=== PATIENT | male | born 1965 | race Caucasian/White ===

== ENCOUNTER 2024-07-16 23:11 | Emergency (ER) | payer BC, SELFPAY ==
--- NOTE | ~2024-07-16 | CT_ITS ---
Noncontrast CT scan of the thoracolumbar spine CLINICAL HISTORY: Back pain TECHNIQUE: Axial noncontrast imaging of the thoracolumbar spine was performed. Sagittal and coronal r eformatted images were constructed. Dose reduction technique was used on this scan by utilizing autom ated exposure control and iterative reconstruction technique. The dose-length product (DLP) was 1782. 76 mGy-cm. FINDINGS: There is no fracture or sublocation of the thoracic spine. Vertebral bodies and to normal h eight and alignment. There are mild degenerative disc changes scattered in the thoracic spine. No sig nificant disc bulge or herniation evident. No spinal canal stenosis or cord compression evident thora cic spine. Neural foramina appear preserved throughout the thoracic spine. There is no fracture or sublocation of the lumbar spine. Vertebral bodies maintain normal height and alignment. At L1-L2, there is moderate degenerative disc narrowing. There is minimal disc bulge and mild facet a rthropathy. No central canal stenosis or definite neural foraminal narrowing. At L2-L3, there is minimal disc bulge and mild facet arthropathy. Possible minimal central canal sten osis. Neural foramina are preserved. At L3-L4, there is disc bulge and mild facet arthropathy. No central canal stenosis. Probable moderat e right neural foraminal narrowing. Left neural foramen preserved. At L4-L5, there is disc bulge and minimal ligament flavum hypertrophy. Possible mild to moderate cent ral canal stenosis. There is mild to moderate right neural foraminal narrowing. Left neural foramen m inimally narrowed. At L5-S1, there is mild disc bulge. No canal stenosis or definite neural foraminal narrowing. Paravertebral soft tissues are unremarkable. There is moderate right hydronephrosis with distended ri ght extrarenal pelvis with abrupt tapering at the UPJ region. Minimal right pleural effusion noted. Impression: No fracture or subluxation. Mild degenerative spondylosis, as above. Moderate right hydronephrosis with distended right renal pelvis and abrupt tapering at the UPJ region . Correlate for chronic UPJ obstruction. Minimal right pleural effusion. Reviewed, dictated and finalized at location M. Impression: No fracture or subluxation. Mild degenerative spondylosis, as above. Moderate right hydronephrosis with distended right renal pelvis and abrupt tape ring at the UPJ region. Correlate for chronic UPJ obstruction. Minimal right pleural effusion.
--- OUTSIDE RECORDS SUMMARY | 2024-07-16 23:13 | XMS_ITS | Continuity of Care Document ---
Author Organization [facility] Address [id number] [place] [address] [address] [place] [address] Phone Care Team Providers Care Share Holder Name Role Phone Joi Waldron Unavailable Unavailable Advance Directives Directive Yes / No Effective Date File Name No Information Encounters Encounter Description Practice Location Reason(s) For Visit Diagnoses Date Provider Providers Copied on Encounter [facility], [address], [place], [place], [id number], [place] tel:[phone] [facility] (formerly [facility]) No Information Apr-0 8-200 5 Vanita Tamez. [address] , [address], [place], [address], [place]. tel:[phone] Family History Family Member Type Diagnosis Age At Onset No Information Payers Payer name Insurance type Covered constitution party ID Authoriza tion(s) No Information Social History Type Description Quantity Date Captured Comments Sex Male Smoking Status No Information Chief Complaint And Reason For Visit No Information Reason For Referral Reason For Referral No Information History Of Present Illness Encounter Date Complaint History Of Prese nt Illness No Information Functional Status Date Functional Assessmen t No Information Instructions Date Instruction Additional Infor mation No Information Assessments Type Assessment Date No Information Patient Care Teams Name Effective Dates (start - stop) Status Members No Information
[2024-07-16 23:16] VITALS: BP 156/81; PULSE 71; RESP 18; TEMP 36.5; O2SAT 98
[2024-07-16 23:37] LABS: Basophils Absolute Auto 0.1 K/mm3 (0.0-0.1); Basophils Percent Auto 0.7 % (0.2-1.2); Eosinophils Absolute Auto 0.1 K/mm3 (0-0.3); Eosinophils Percent Auto 1.7 % (0-4.4); Hematocrit 42.6 % (42.0-52.0); Hemoglobin 14.8 g/dL (14.0-18.0); Immature Granulocyte Absolute 0.01 K/mm3 (0.00-0.031); Immature Granulocyte Percent A 0.1 % (0-0.5); Lymphocytes Percent Auto 34.9 % (18.3-44.2); Mean Corpuscular HGB Conc 34.7 g/dl (32-36); Mean Corpuscular Volume 86.4 fl (80-100); Mean Platelet Volume 9.4 fl (7.4-10.4); Monocytes Absolute Auto 0.4 K/mm3 (0.1-0.6); Neutrophils Absolute Auto 4.1 K/mm3 (1.3-6.7); Neutrophils Percent Auto 56.6 % (45.5-73.1); Platelet Count Result 229 k/mm3 (150-375); Red Blood Count 4.93 M/mm3 (4.6-6.20); Red Cell Distribution Width 11.8 % (11.5-14.5); White Blood Count 7.2 K/mm3 (4.5-10.0)
[2024-07-16 23:47] LABS: Alanine Aminotransferase 34 U/L (6-50); Alkaline Phosphatase 62 U/L (38-126); Anion Gap 11 mmol/L (4-12); Aspartate Amino Transferase 43 U/L (17-59); Bilirubin,Total 0.9 mg/dL (0.2-1.3); Blood Urea Nitrogen 17 mg/dL (9-20); Calcium 9.4 mg/dL (8.4-10.2); Carbon Dioxide 28 mmol/L (22-30); Chloride 99 mmol/L (98-107); Estimated CRCL calculation 83 ml/min; Estimated Glomerular Filt Rate > 60; Glucose 105 mg/dL (65-110); Potassium 4.1 mmol/L (3.4-5.0); Sodium 138 mmol/L (137-145)
[2024-07-17 00:21] VITALS: BP 133/83; PULSE 74; RESP 18; TEMP 36.7; O2SAT 95
[2024-07-17 00:24] VITALS: BP 133/83; O2SAT 97
--- NOTE | 2024-07-17 00:35 | ED_ITS ---
HPI - Male Genitourinary General Chief complaint: Urogenital-Male Stated complaint: right flank pain Time Seen by Provider: 07/16/24 23:51 History of Present Illness HPI Narrative: Patient is a 59-year-old male who presents to the ER with back pain. He reports he was lifting heavy objects ?a couple weeks ago when he tweaked his back. Patient reports his symptoms relieved but then yesterday he experienced ?a sharp tweak around noon that caused him to double over. He reports this morning his pain was better and he was able to mow the yard, but when he laid down in bed tonight he was unable to get comfortable due to the pain. Patient reports certain movements aggravate the pain, but it is intermittent. He endorses a history of a cardiac stent, high blood pressure, hyperlipidemia, hypothyroidism. Patient denies any weakness, numbness and tingling, or urinary symptoms. Related Data Allergies Allergy/AdvReac Type Severity Reaction Status Date / Time No Known Allergies Allergy Unverified 07/16/24 23:19 Review of Systems 2 Review of Systems: All systems reviewed & are unremarkable except as noted in HPI and below Exam 2 Narrative: GENERAL: Well appearing, well-nourished, non-toxic, in no acute distress. HEAD: Normocephalic, atraumatic. NECK: Supple. No adenopathy, no masses. RESPIRATORY: Airway patent, respirations nonlabored. Clear to auscultation bilaterally, no rales, rhonchi, wheezing. CARDIOVASCULAR: Regular rate and rhythm without murmurs, rubs, or gallops. Peripheral pulses 2+ and equal bilaterally. + CVA tenderness L side ABDOMINAL: Soft, nontender, nondistended, no hepatosplenomegaly. Normoactive BS. MUSCULOSKELETAL: Moves all extremities. Strength/ROM intact without gross deformities. Negative straight leg test SKIN: Warm, dry, normal color. No rashes. NEURO: A&O X3. Speech clear. Cranial nerves II-XII intact. No ataxic movements. PSYCHIATRIC: Appropriate mood and affect. Normal interaction. Course Vital Signs Vital signs: Vital Signs Temperature 36.5 C 07/16/24 23:16 Pulse Rate 71 07/16/24 23:16 Respiratory Rate 18 07/16/24 23:16 Blood Pressure 156/81 H 07/16/24 23:16 Pulse Oximetry 98 07/16/24 23:16 Oxygen Delivery Room Air 07/16/24 23:16 Temperature 36.7 C 07/17/24 00:21 Pulse Rate 74 07/17/24 00:21 Respiratory Rate 18 07/17/24 00:21 Blood Pressure 133/83 07/17/24 00:24 Pulse Oximetry 97 07/17/24 00:24 Oxygen Delivery Room Air 07/16/24 23:16 MDM - Male Genitourinary MDM Narrative Medical decision making narrative: Patient is a 59-year-old male who presents to the ER with back pain. He reports he was lifting heavy objects ?a couple weeks ago when he tweaked his back. Patient reports his symptoms relieved but then yesterday he experienced ?a sharp tweak around noon that caused him to double over. He reports this morning his pain was better and he was able to mow the yard, but when he laid down in bed tonight he was unable to get comfortable due to the pain. Patient reports certain movements aggravate the pain, but it is intermittent. He endorses a history of a cardiac stent, high blood pressure, hyperlipidemia, hypothyroidism. Patient denies any weakness, numbness and tingling, or urinary symptoms. No previous history of back pain. Labs Ordered: CBC, CMP, UA Imaging Ordered: CT thoracic/lumbar spine Medications Ordered: Toradol 60mg IM, Prednisone 40mg PO Results: Pt's CT scan indicates... Diagnosis: Patient Education/Shared MDM: Results of lab work and imaging shared with patient and his . He endorses improvement of symptoms following medication administration. Patient strongly advised to follow-up with his PCP and neurology as needed. He will be discharged home with a prescription for Prednisone and muscle relaxants. Pt can also take Ibuprofen 800mg PO for pain control. Strict return precautions provided. Patient verbalized understanding and is in agreement with plan. Vital signs stable at time of discharge. All questions answered. Differential Diagnosis Differential diagnosis: Likely urinary tract infection and other (Degenerative disc disease, lumbar radiculopathy, kidney stone) Lab Data Attestation: I reviewed the patient's lab results. 07/16/24 23:30 07/16/24 23:30 Labs: Lab Results 07/16/24 07/17/24 Range/Units 23:30 00:18 WBC 7.2 (4.5-10.0) K/mm3 RBC 4.93 (4.6-6.20) M/mm3 Hgb 14.8 (14.0-18.0) g/dL Hct 42.6 (42.0-52.0) % MCV 86.4 (80-100) fl MCH 30.0 (26-34) pg MCHC 34.7 (32-36) g/dl RDW 11.8 (11.5-14.5) % Plt Count 229 (150-375) k/mm3 MPV 9.4 (7.4-10.4) fl Immature Gran % (Auto) 0.1 (0-0.5) % Neut % (Auto) 56.6 (45.5-73.1) % Lymph % (Auto) 34.9 (18.3-44.2) % [place] % (Auto) 6.0 (2.6-8.5) % Eos % (Auto) 1.7 (0-4.4) % Baso % (Auto) 0.7 (0.2-1.2) % Lymph # (Auto) 2.50 (0.9-3.2) K/mm3 [place] # (Auto) 0.4 (0.1-0.6) K/mm3 Eos # (Auto) 0.1 (0-0.3) K/mm3 Baso # (Auto) 0.1 (0.0-0.1) K/mm3 Abs Immat Gran (auto) 0.01 (0.00-0.031) K/mm3 Absolute Neuts (auto) 4.1 (1.3-6.7) K/mm3 Absolute Nucleated RBC 0.000 (0.0-0.012) K/mm3 Nucleated RBC % 0.0 (0.0-0.2) % Sodium 138 (137-145) mmol/L Potassium 4.1 (3.4-5.0) mmol/L Chloride 99 (98-107) mmol/L Carbon Dioxide 28 (22-30) mmol/L Anion Gap 11 (4-12) mmol/L BUN 17 (9-20) mg/dL Creatinine 1.03 (0.7-1.3) mg/dL Estim Creat Clear Calc 83 ml/min Estimated GFR > 60 (59 - ) Glucose 105 (65-110) mg/dL Calcium 9.4 (8.4-10.2) mg/dL Total Bilirubin 0.9 (0.2-1.3) mg/dL AST 43 (17-59) U/L ALT 34 (6-50) U/L Alkaline Phosphatase 62 (38-126) U/L Total Protein 8.0 (6.3-8.2) g/dL Albumin 5.0 (3.5-5.1) g/dL Urine Color Yellow (Yellow) Urine Appearance Clear (Clear) Urine pH 7.5 (5.0-9.0) Ur Specific [place] 1.010 (1.001-1.035) Urine Protein Negative (Negative) mg/dL Urine Glucose (UA) Negative (Negative) mg/dL Urine Ketones Negative (Negative) mg/dL Ur Blood (Man) Negative (Negative) Urine Nitrate Negative (Negative) Urine Bilirubin Negative (Negative) Urine Urobilinogen 1.0 (<2.0) mg/dL Leukocyte Esterase Rfl Negative (Negative) FERNANDA/UL Discharge Plan Discharge Clinical Impression: Degenerative disc disease, Spondylolysis, thoracic region, Lumbar spondylosis Patient Disposition: Home Condition: Stable Instructions: Antibiotic Form, Acute Low Back Pain (ED) Additional Instructions: Please return to the ER with any worsening symptoms. Follow-up with primary care provider and Neurosurgery as needed. Take all medications as prescribed, including regularly scheduled medications. You may use ibuprofen and muscle relaxants for pain control. Steroids may also help decrease the inflammation in your back. Patient Language: [place] Citizen Prescriptions: New cyclobenzaprine 5 mg tablet 5 mg PO TID PRN (Reason: muscle spasm) Qty: 20 0RF ibuprofen 800 mg tablet 800 mg PO TID PRN (Reason: pain) Qty: 20 0RF prednisone 20 mg tablet 20 mg PO BID Qty: 10 0RF Follow-up/Referrals: UNKNOWN,DOCTOR [Non-Staff] - Time of Disposition: 03:29
[2024-07-17 00:42] LABS: Add Urine Microscopic? NO; Appearance Urine Clear (Clear); Bilirubin Urine Negative (Negative); Blood Urine Negative (Negative); Color Urine Yellow (Yellow); Glucose Urine UA Negative (Negative); Ketones Urine Negative (Negative); Leukocyte Esterase Ur Negative LEU/UL (Negative); Nitrate Urine Negative (Negative); Protein Urine Negative (Negative); pH Urine 7.5 (5.0-9.0)
[2024-07-17] MEDS: KETOROLAC (*BKC) 60 MG/2 ML VIAL IM (01:07)
[2024-07-17] MEDS: predniSONE 20 MG TABLET 40 MG PO (01:07)
--- OUTSIDE RECORDS SUMMARY | 2024-07-17 01:33 | XMS_ITS | Continuity of Care Document ---
Author Organization [facility] Address [id number] [place] [address] [address] [place] [address] Phone Care Team Providers Care Assistant Community Director Name Role Phone Joi Waldron Unavailable Unavailable Advance Directives Directive Yes / No Effective Date File Name No Information Encounters Encounter Description Practice Location Reason(s) For Visit Diagnoses Date Provider Providers Copied on Encounter [facility], [address], [place], [place], [id number], [place] tel:[phone] [facility] No Information Apr-0 8-200 5 Vanita Tamez. [address] , [address], [place], [address], [place]. tel:[phone] Family History Family Member Type Diagnosis Age At Onset No Information Payers Payer name Insurance type Covered republican ID Authoriza tion(s) No Information Social History [...]
[2024-07-17] MEDS: CYCLOBENZAPRINE HCL 10 MG TABLET PO (03:49)
[2024-07-17 03:50] VITALS: BP 134/75; PULSE 86; RESP 16; TEMP 36.5; O2SAT 100
== END 2024-07-17 03:55 | disposition home or self-care (01) ==
PROVIDERS: Student in an Organized Health Care Education/Training Program; Emergency Provider Registered Nurse; PCP Family Medicine
DX: M47.814 Spondylosis without myelopathy or radiculopathy, thoracic region (principal); M47.816 Spondylosis without myelopathy or radiculopathy, lumbar region; I10 Essential (primary) hypertension; E78.5 Hyperlipidemia, unspecified; E03.9 Hypothyroidism, unspecified; Z95.5 Presence of coronary angioplasty implant and graft
CPT/HCPCS: 36415; 72128; 72131; 80053; 81003; 85025; 96372; 99284; A9270; J1885; J7512